=== PATIENT | female | born 1970 | race Caucasian/White ===

== ENCOUNTER 2017-09-21 13:21 | Emergency (ER) | payer BC, OTHER ==
[~2017-09-21] VITALS: Ht 165.1 cm; Wt 108.9 kg
[2017-09-21] MEDS ORDERED: ASPirin 81 mg TAB PO ONE (14:30)
[2017-09-21 14:46] LABS: Basophils # (auto) 0.1 uL; Basophils % (auto) 0.8 % (0.0-2.0); Eosinophils # (auto) 0.4 uL; Eosinophils % (auto) 3.8 % (0.0-7.0); Hematocrit 42.3 % (36.0-46.0); Hemoglobin 14.3 g/dL (12.2-16.2); Lymphocytes # (auto) 2.9 uL; Mean Corpuscular Hemoglobin 30.1 pg (28.0-32.0); Mean Corpuscular Hgb Conc. 33.8 g/dL (32.0-36.0); Mean Corpuscular Volume 89.3 fL (80.0-100.0); Monocytes # (auto) 0.7 uL; Monocytes % (auto) 6.6 % (0.0-12.0); Neutrophils # (auto) 6.9 uL; Neutrophils % (auto) 62.8 % (37.0-80.0); Nucleated Red Blood Cells % 0.1 %; Platelet Count (auto) 355 10^3/uL (140-450); Red Blood Cells 4.74 10^6/uL (4.0-5.20); Red Cell Distribution Width 14.1 % (11.8-14.3); White Blood Cell 11.1 10^3/uL (4.4-10.8)
[2017-09-21 15:00] LABS: Urine Bacteria NONE SEEN /hpf (None Seen); Urine Blood Negative /uL (Negative); Urine Mucus FEW (None Seen); Urine Specific Gravity 1.021 (1.001-1.035); Urine WBC 1 /hpf (0 - 5)
[2017-09-21 15:02] LABS: Alanine Aminotransferase 33 U/L (13-56); Albumin 3.5 g/dL (3.4-5.0); Anion Gap 8 (5-15); Aspartate Aminotransferase 14 U/L (15-37); BUN/Creatinine Ratio 17.3; Blood Urea Nitrogen 14 mg/dL (7-18); Calcium 8.3 mg/dL (8.5-10.1); Carbon Dioxide 23 mmol/L (21-32); Chloride 112 mmol/L (98-107); GFR African American 98 mL/min; GFR Non-African American 81 mL/min; Glucose 140 mg/dL (74-106); Potassium 3.7 mmol/L (3.5-5.1); Sodium 143 mmol/L (136-145)
[2017-09-21 15:07] LABS: Alkaline Phosphatase 65 U/L (45-117); Bilirubin, Total 0.2 mg/dL (0.2-1.0); Total Protein 7.3 g/dL (6.4-8.2)
[2017-09-21 16:51] VITALS: BP 133/87
== END 2017-09-21 16:55 | disposition home or self-care (01) ==
LOC: ER 13:23
DX: R07.89 Other chest pain (principal); J40 Bronchitis, not specified as acute or chronic; F17.210 Nicotine dependence, cigarettes, uncomplicated; Z90.49 Acquired absence of other specified parts of digestive tract; Z90.710 Acquired absence of both cervix and uterus; Z80.0 Family history of malignant neoplasm of digestive organs; Z88.1 Allergy status to other antibiotic agents
CPT/HCPCS: 36415; 71045; 74176; 80053; 81001; 84484; 85025; 93005

== ENCOUNTER 2019-06-02 15:48 | Emergency (ER) | payer BC, MEDICAID, OTHER ==
[~2019-06-02] VITALS: Ht 165.1 cm; Wt 70.3 kg
[2019-06-02 16:31] VITALS: BP 157/84
[2019-06-02] MEDS ORDERED: KETOROLAC TROMETH 60MG/2ML VIAL IM ONE (17:00)
[2019-06-02] MEDS ORDERED: diazePAM 5 MG TAB PO ONE (17:15)
== END 2019-06-02 17:41 | disposition home or self-care (01) ==
LOC: ER 15:48
DX: M43.6 Torticollis (principal); M54.2 Cervicalgia; M62.838 Other muscle spasm; F17.210 Nicotine dependence, cigarettes, uncomplicated; I25.2 Old myocardial infarction; Z90.49 Acquired absence of other specified parts of digestive tract; Z90.710 Acquired absence of both cervix and uterus; Z88.0 Allergy status to penicillin; Z88.1 Allergy status to other antibiotic agents
CPT/HCPCS: 72050; 96372; 99283; J1885

== ENCOUNTER 2019-09-24 07:24 | Emergency (ER) | payer MEDICAID ==
[~2019-09-24] VITALS: Ht 165.1 cm; Wt 74.8 kg
[2019-09-24] MEDS ORDERED: SODIUM CHLORIDE 0.9% 1,000 ML IV ONE (08:12)
[2019-09-24] MEDS ORDERED: ASPirin 81 mg TAB PO ONE (08:15)
[2019-09-24 08:50] LABS: Basophils # (auto) 0.1 10 ^3/uL (0-0.2); Basophils % (auto) 0.6 % (0.0-2.0); Eosinophils # (auto) 0.3 10 ^3/uL (0-0.8); Eosinophils % (auto) 3.6 % (0.0-7.0); Hematocrit 40.8 % (36.0-46.0); Hemoglobin 13.6 g/dL (12.2-16.2); Lymphocytes # (auto) 1.9 10 ^3/uL (0.4-5.4); Lymphocytes % (auto) 21.4 % (10.0-50.0); Mean Corpuscular Hemoglobin 30.9 pg (28.0-32.0); Mean Corpuscular Hgb Conc. 33.2 g/dL (32.0-36.0); Monocytes # (auto) 0.5 10 ^3/uL (0-1.3); Neutrophils # (auto) 6.3 10 ^3/uL (1.6-8.6); Neutrophils % (auto) 69.4 % (37.0-80.0); Platelet Count (auto) 303 10^3/uL (140-450); Red Blood Cells 4.39 10^6/uL (4.0-5.20); Red Cell Distribution Width 13.6 % (11.8-14.3); White Blood Cell 9.1 10^3/uL (4.4-10.8)
[2019-09-24 09:05] LABS: INR 1.13 (0.9-1.15); Partial Thromboplastin Time 25.7 sec (23.64-32.05)
[2019-09-24 09:14] LABS: Albumin 3.4 g/dL (3.4-5.0); Potassium 3.8 mmol/L (3.5-5.1)
[2019-09-24 09:20] LABS: Bilirubin, Total 0.4 mg/dL (0.2-1.0); Total Protein 6.8 g/dL (6.4-8.2)
[2019-09-24 10:00] VITALS: BP 140/74
[2019-09-24] MEDS ORDERED: LEVOTHYROXINE SODIUM 100 MCG/5 ML INJ IV ONE (10:45)
[2019-09-24 12:43] LABS: Cholesterol 179 mg/dL (< 200); Triglycerides 131 mg/dL (< 150)
[2019-09-24 12:46] LABS: HDL Cholesterol 40 mg/dL (40-59); LDL Cholesterol 117 mg/dL (< 100)
== END 2019-09-24 11:44 | disposition left against medical advice (07) ==
LOC: ER 07:24
DX: R07.89 Other chest pain (principal); I10 Essential (primary) hypertension; E03.9 Hypothyroidism, unspecified; I25.2 Old myocardial infarction; E44.1 Mild protein-calorie malnutrition; R11.2 Nausea with vomiting, unspecified; Z68.27 Body mass index [BMI] 27.0-27.9, adult; Z87.891 Personal history of nicotine dependence; Z90.49 Acquired absence of other specified parts of digestive tract; Z90.710 Acquired absence of both cervix and uterus; Z88.0 Allergy status to penicillin; Z88.1 Allergy status to other antibiotic agents
CPT/HCPCS: 36415; 71046; 80053; 80061; 83735; 83880; 84443; 84481; 84484; 85025; 85379; 85610; 85730; 93005; 96361; 96374; 99285; J3490; J7030

== ENCOUNTER 2020-04-29 11:44 | Emergency (ER) | payer MEDICAID ==
[~2020-04-29] VITALS: Ht 165.1 cm; Wt 90.7 kg
[2020-04-29 11:45] VITALS: BP 166/102
[2020-07-04] MEDS ORDERED: CITA-244 PO (14:06)
[2020-07-04] MEDS ORDERED: ATOR40TA52 PO (14:06)
[2020-07-04] MEDS ORDERED: METO25TA93 PO (14:06)
[2020-07-04] MEDS ORDERED: LEV100T PO (14:06)
[2020-07-06] MEDS ORDERED: CARV6.2551 PO (11:17)
[2020-07-06] MEDS ORDERED: ATOR40TA52 PO (11:17)
[2020-07-06] MEDS ORDERED: LISI20TA28 PO (11:17)
[2020-07-06] MEDS ORDERED: FURO1TAB31 PO (11:17)
[2020-07-06] MEDS ORDERED: LEV100T PO (11:17)
== END 2020-04-29 13:30 | disposition left against medical advice (07) ==
LOC: ER 11:44
DX: Z76.0 Encounter for issue of repeat prescription (principal); Z53.21 Procedure and treatment not carried out due to patient leaving prior to being seen by health care provider

== ENCOUNTER 2021-05-03 23:08 | Emergency (ER) | payer MEDICAID ==
[~2021-05-03] VITALS: Ht 165.1 cm; Wt 111.1 kg
[2021-05-03 23:08] VITALS: BP 135/95
[~2021-05-03 23:08] MED LIST: ATOR40TA52 PO; CARV6.2551 PO; CITA-244 PO; FURO1TAB31 PO; LEV100T PO; LISI20TA28 PO
== END 2021-05-04 05:35 | disposition left against medical advice (07) ==
LOC: ER 23:08
DX: I42.9 Cardiomyopathy, unspecified (principal); R06.02 Shortness of breath; F15.10 Other stimulant abuse, uncomplicated; F17.210 Nicotine dependence, cigarettes, uncomplicated; Z90.49 Acquired absence of other specified parts of digestive tract; Z90.710 Acquired absence of both cervix and uterus
CPT/HCPCS: 71045; 93005

== ENCOUNTER 2022-07-03 00:26 | Emergency (ER) | payer MEDICAID ==
[~2022-07-03] VITALS: Ht 165.1 cm; Wt 121.4 kg
[2022-07-03] MEDS ORDERED: IPRATROPIUM BROM 0.5 MG/2.5ML INH SOL NEB ONE (01:00)
[2022-07-03] MEDS ORDERED: ALBUTEROL SULF 2.5 MG/0.5ML(0.5%) NEB SOLN NEB ONE (01:00)
[2022-07-03 02:45] VITALS: BP 155/96
[2022-07-03 03:45] LABS: Albumin 3.6 g/dL (3.4-5.0); BUN/Creatinine Ratio 15.6 (10.0-20.0); Potassium 4.1 mmol/L (3.5-5.1)
[2022-07-03 03:48] LABS: Bilirubin, Total 0.2 mg/dL (0.2-1.0); Total Protein 7.2 g/dL (6.4-8.2)
[2022-07-03 03:55] LABS: Basophils # (auto) 0.1 10 ^3/uL (0-0.2); Basophils % (auto) 1.1 % (0.0-2.0); Eosinophils # (auto) 0.4 10 ^3/uL (0-0.8); Eosinophils % (auto) 3.5 % (0.0-7.0); Hematocrit 37.7 % (36.0-46.0); Hemoglobin 12.7 g/dL (12.2-16.2); Lymphocytes # (auto) 2.3 10 ^3/uL (0.4-5.4); Lymphocytes % (auto) 20.8 % (10.0-50.0); Mean Corpuscular Hemoglobin 30.1 pg (28.0-32.0); Mean Corpuscular Hgb Conc. 33.8 g/dL (32.0-36.0); Mean Corpuscular Volume 89.2 fL (80.0-100.0); Monocytes # (auto) 0.8 10 ^3/uL (0-1.3); Neutrophils # (auto) 7.5 10 ^3/uL (1.6-8.6); Neutrophils % (auto) 67.6 % (37.0-80.0); Nucleated Red Blood Cells % 0.1 %; Red Blood Cells 4.23 10^6/uL (4.0-5.20); Red Cell Distribution Width 14.5 % (11.8-14.3); White Blood Cell 11.1 10^3/uL (4.4-10.8)
[2022-07-03] MEDS ORDERED: AZITHROMYCIN 250 MG TAB PO ONE (04:00)
[2022-07-03] MEDS ORDERED: cefTRIAXone 1GM/50ML D5W 50 ML IV ONE (04:00)
[2022-07-03] MEDS ORDERED: levoFLOXacin 500MG 100 ML IV ONE (05:15)
[2022-07-03] MEDS ORDERED: CEPHALEXIN 250 MG CAP PO ONE (05:15)
[2022-07-03] MEDS ORDERED: ALBUTEROL SULF 2.5 MG/0.5ML(0.5%) NEB SOLN NEB PRN (06:30)
[2022-07-03] MEDS ORDERED: TEMAZEPAM 15 MG CAP PO PRN (06:30)
[2022-07-03] MEDS ORDERED: ONDANSETRON HCL 4 MG/2 ML VIAL IV PRN (06:30)
[2022-07-03] MEDS ORDERED: NITROGLYCERIN 0.4 MG SL TAB SL PRN (06:30)
[2022-07-03] MEDS ORDERED: ACETAMINOPHEN 325 MG TAB PO PRN (06:30)
[2022-07-03] MEDS ORDERED: MORPHINE SULFATE INJ 2 MG/ml SYRG IV PRN (06:30)
[2022-07-03] MEDS ORDERED: LEVOTHYROXINE SODIUM 100 MCG TAB PO SCH (07:00)
[2022-07-03] MEDS ORDERED: CLOPIDOGREL BISULFATE 75 MG TAB PO SCH (10:00)
[2022-07-03] MEDS ORDERED: FUROSEMIDE 40 MG TAB PO SCH (10:00)
[2022-07-03] MEDS ORDERED: ENOXAPARIN SOD 40 MG/0.4 ML SYRINGE SC SCH (10:00)
[2022-07-03] MEDS ORDERED: levoFLOXacin 500MG 100 ML IV SCH (10:00)
[2022-07-03] MEDS ORDERED: CARVEDILOL 3.125 MG TAB PO SCH (10:00)
[2022-07-03] MEDS ORDERED: LISINOPRIL 20 MG TAB PO SCH (10:00)
[2022-07-03] MEDS ORDERED: PANTOPRAZOLE 40 MG TAB PO SCH (10:00)
[2022-07-03] MEDS ORDERED: ATORVASTATIN 20 MG TAB PO SCH (22:00)
== END 2022-07-03 07:44 | disposition left against medical advice (07) ==
LOC: ER 00:26 → TELE 06:27 → UNDOADMIN 06:27 → UNDODISIN 06:30
DX: I21.4 Non-ST elevation (NSTEMI) myocardial infarction (principal); J18.1 Lobar pneumonia, unspecified organism; R07.89 Other chest pain; I11.0 Hypertensive heart disease with heart failure; I50.9 Heart failure, unspecified; I25.2 Old myocardial infarction; E03.9 Hypothyroidism, unspecified; Z87.891 Personal history of nicotine dependence; Z90.49 Acquired absence of other specified parts of digestive tract; Z90.89 Acquired absence of other organs; Z90.710 Acquired absence of both cervix and uterus
CPT/HCPCS: 36415; 71045; 80053; 83880; 84484; 85025; 93005; 94640; 96365; 99285; J1956; J7644; G0378

== ENCOUNTER 2023-10-03 07:05 | Emergency (ER) | payer MEDICAID ==
[~2023-10-03] VITALS: Ht 165.1 cm; Wt 113.6 kg
[~2023-10-03 07:05] MED LIST changes: -LISI20TA28 PO; +LISI20TA56 PO
[2023-10-03 07:55] LABS: Basophils # (auto) 0.1 10 ^3/uL (0-0.2); Basophils % (auto) 1.1 % (0.0-2.0); Eosinophils # (auto) 0.4 10 ^3/uL (0-0.8); Eosinophils % (auto) 4.3 % (0.0-7.0); Hemoglobin 13.1 g/dL (12.2-16.2); Lymphocytes # (auto) 1.5 10 ^3/uL (0.4-5.4); Lymphocytes % (auto) 17.9 % (10.0-50.0); Mean Corpuscular Hemoglobin 30.8 pg (28.0-32.0); Mean Corpuscular Hgb Conc. 32.8 g/dL (32.0-36.0); Mean Corpuscular Volume 94.1 fL (80.0-100.0); Monocytes # (auto) 0.8 10 ^3/uL (0-1.3); Monocytes % (auto) 8.9 % (0.0-12.0); Neutrophils # (auto) 5.8 10 ^3/uL (1.6-8.6); Neutrophils % (auto) 67.8 % (37.0-80.0); Red Blood Cells 4.25 10^6/uL (4.0-5.20); Red Cell Distribution Width 15.7 % (11.8-14.3); White Blood Cell 8.5 10^3/uL (4.4-10.8)
[2023-10-03] MEDS: FUROSEMIDE 100 MG/10ML VIAL IV ONE (08:00)
[2023-10-03 08:07] VITALS: BP 161/80; PULSE 95; RESP 15; TEMP 98; O2SAT 96
[2023-10-03 08:10] LABS: Alanine Aminotransferase 40 U/L (7-40); Albumin 4.1 g/dL (3.2-4.8); Alkaline Phosphatase 80 U/L (46-116); Anion Gap 7 (5-15); Aspartate Aminotransferase 30 U/L (13-40); BUN/Creatinine Ratio 19.1 (10.0-20.0); Blood Urea Nitrogen 21 mg/dL (9-23); Carbon Dioxide 24 mmol/L (20-30); Chloride 109 mmol/L (98-107); Glucose 162 mg/dL (74-106); INR 1.1 (0.9-1.15); Magnesium 1.9 mg/dL (1.6-2.6); Partial Thromboplastin Time 21.4 SEC (24.5-34.5); Potassium 4.1 mmol/L (3.5-5.1); Prothrombin Time 11.6 sec (9.3-11.8); Sodium 140 mmol/L (136-145)
[2023-10-03 08:11] LABS: Bilirubin, Total 0.3 mg/dL (0.2-1.0); Total Protein 6.5 g/dL (5.7-8.2)
== END 2023-10-03 09:48 | disposition left against medical advice (07) ==
LOC: ER 07:05
DX: I11.0 Hypertensive heart disease with heart failure (principal); I50.9 Heart failure, unspecified; I25.2 Old myocardial infarction; E07.9 Disorder of thyroid, unspecified; F15.10 Other stimulant abuse, uncomplicated; Z87.891 Personal history of nicotine dependence; Z85.9 Personal history of malignant neoplasm, unspecified; Z90.49 Acquired absence of other specified parts of digestive tract; Z90.710 Acquired absence of both cervix and uterus; Z90.89 Acquired absence of other organs; Z88.1 Allergy status to other antibiotic agents; Z88.8 Allergy status to other drugs, medicaments and biological substances; Z88.0 Allergy status to penicillin; Z79.899 Other long term (current) drug therapy
CPT/HCPCS: 36415; 71045; 80053; 83735; 83880; 84484; 85025; 85610; 85730; 93005; 96374; 99285; J1940

== ENCOUNTER 2023-10-09 07:36 | Inpatient (IN) | payer MEDICAID ==
[~2023-10-09] VITALS: Ht 165.1 cm; Wt 126.9 kg
[2023-10-09 09:00] VITALS: PULSE 88; RESP 18; O2SAT 95
[2023-10-09 09:15] LABS: Basophils # (auto) 0.1 10 ^3/uL (0-0.2); Eosinophils # (auto) 0.4 10 ^3/uL (0-0.8); Eosinophils % (auto) 4.6 % (0.0-7.0); Hematocrit 44.7 % (36.0-46.0); Lymphocytes # (auto) 1.7 10 ^3/uL (0.4-5.4); Lymphocytes % (auto) 19.5 % (10.0-50.0); Mean Corpuscular Hemoglobin 30.9 pg (28.0-32.0); Mean Corpuscular Hgb Conc. 33.5 g/dL (32.0-36.0); Mean Corpuscular Volume 92.3 fL (80.0-100.0); Monocytes # (auto) 0.6 10 ^3/uL (0-1.3); Monocytes % (auto) 7.2 % (0.0-12.0); Neutrophils # (auto) 5.8 10 ^3/uL (1.6-8.6); Neutrophils % (auto) 67.7 % (37.0-80.0); Nucleated Red Blood Cells % 0.1 %; Red Blood Cells 4.85 10^6/uL (4.0-5.20); White Blood Cell 8.6 10^3/uL (4.4-10.8)
[2023-10-09 09:41] LABS: Chloride 107 mmol/L (98-107); Potassium 4.5 mmol/L (3.5-5.1); Sodium 136 mmol/L (136-145)
[2023-10-09 09:42] LABS: Anion Gap 7 (5-15); Calcium 9.3 mg/dL (8.5-10.1); Carbon Dioxide 22 mmol/L (20-30)
[2023-10-09 09:47] LABS: BUN/Creatinine Ratio 7.1 (10.0-20.0); Blood Urea Nitrogen 8 mg/dL (9-23); Glucose 128 mg/dL (74-106)
[2023-10-09] MEDS ORDERED: ONDANSETRON HCL 4 MG/2 ML VIAL IV PRN (12:00)
[2023-10-09] MEDS ORDERED: NITROGLYCERIN 0.4 MG SL TAB SL PRN (12:00)
[2023-10-09] MEDS ORDERED: MORPHINE SULFATE INJ 2 MG/ml SYRG IV PRN (12:00)
[2023-10-09 12:26] VITALS: RESP 16; O2SAT 97
[2023-10-09] MEDS: FUROSEMIDE 20 MG/2 ML VIAL IV ONE (12:31)
[2023-10-09 13:49] LABS: Urine Bacteria FEW /hpf (None Seen); Urine Blood Negative /uL (Negative); Urine Color Yellow (Yellow); Urine Protein, UAD Negative (Negative); Urine Specific Gravity 1.017 (1.001-1.035); Urine Urobilinogen Normal (Negative); Urine WBC 36 /hpf (0 - 5)
[2023-10-09 13:50] LABS: Urine Clarity Cloudy (Clear)
[2023-10-09 13:57] LABS: Amphetamine Screen, Urine Pos (NEGATIVE); Barbiturate Scree,Urine Neg (NEGATIVE); Benzodiazephine Screen, Urine Neg (NEGATIVE); Cocaine Screen, Urine Neg (NEGATIVE); Opiate Scree,Urine Neg (NEGATIVE); Phencyclidine Screen, Urine Neg (NEGATIVE)
[2023-10-09 13:58] LABS: Cannabinoid Screen, Urine Neg (NEGATIVE)
[2023-10-09] MEDS: ENOXAPARIN SOD 100 MG/1 ML SYRINGE SC SCH (15:02)
[2023-10-09] MEDS: ASPirin-EC 81 mg tab PO ONE (15:02)
[2023-10-09 15:08] LABS: Triglycerides 302 mg/dL (< 150)
[2023-10-09 15:09] LABS: LDL Cholesterol 192 mg/dL (< 100)
[2023-10-09 15:10] LABS: Cholesterol 266 mg/dL (< 200); HDL Cholesterol 35 mg/dL (40-59)
[2023-10-09 16:02] LABS: INR 1.13 (0.9-1.15); Partial Thromboplastin Time 25.7 SEC (24.5-34.5); Prothrombin Time 11.9 sec (9.3-11.8)
[2023-10-09 17:48] VITALS: BP 146/84; PULSE 91; RESP 20; TEMP 98.4; O2SAT 92
[2023-10-09 17:55] VITALS: BP 146/84; PULSE 91; RESP 20; TEMP 98.4; O2SAT 92
[2023-10-09] MEDS: SPIRONOLACTONE 25 MG TAB PO SCH (18:40)
[2023-10-09] MEDS: FUROSEMIDE 40 MG/4 ML VIAL IV SCH (18:40)
[2023-10-09 20:00] VITALS: PULSE 93; PULSE 97; RESP 17; O2SAT 93
[2023-10-09] MEDS: HYDROcodone-ACET 5/325MG TAB PO PRN (20:04)
[2023-10-09 21:00] VITALS: BP 157/93; PULSE 93; RESP 17; TEMP 98.3; O2SAT 93
[2023-10-09] MEDS: FAMOTIDINE 20 MG TAB PO SCH (21:27)
[2023-10-09] MEDS: ATORVASTATIN 20 MG TAB PO SCH (21:27)
[2023-10-10] VITALS (8 sets, daily range): BP systolic 112–164; BP diastolic 67–76; PULSE 70–96; RESP 16–20; TEMP 97.3–98; O2SAT 90–99
[2023-10-10] MEDS: ACETAMINOPHEN 325 MG TAB PO PRN (00:13)
[2023-10-10 05:49] LABS: Basophils # (auto) 0.1 10 ^3/uL (0-0.2); Basophils % (auto) 0.9 % (0.0-2.0); Eosinophils # (auto) 0.4 10 ^3/uL (0-0.8); Eosinophils % (auto) 4.5 % (0.0-7.0); Hematocrit 45.7 % (36.0-46.0); Hemoglobin 15.1 g/dL (12.2-16.2); Lymphocytes # (auto) 1.9 10 ^3/uL (0.4-5.4); Lymphocytes % (auto) 24.5 % (10.0-50.0); Mean Corpuscular Hgb Conc. 33.1 g/dL (32.0-36.0); Mean Corpuscular Volume 93.6 fL (80.0-100.0); Monocytes # (auto) 0.6 10 ^3/uL (0-1.3); Monocytes % (auto) 7.1 % (0.0-12.0); Nucleated Red Blood Cells % 0.1 %; Red Blood Cells 4.88 10^6/uL (4.0-5.20); Red Cell Distribution Width 15.3 % (11.8-14.3)
[2023-10-10 05:53] LABS: Chloride 104 mmol/L (98-107); Potassium 4.5 mmol/L (3.5-5.1); Sodium 138 mmol/L (136-145)
[2023-10-10 05:54] LABS: Anion Gap 6 (5-15); Carbon Dioxide 28 mmol/L (20-30)
[2023-10-10 05:55] LABS: Calcium 9.1 mg/dL (8.5-10.1)
[2023-10-10 06:00] LABS: BUN/Creatinine Ratio 17.6 (10.0-20.0); Blood Urea Nitrogen 21 mg/dL (9-23); Glucose 144 mg/dL (74-106)
[2023-10-10] MEDS: ASPirin-EC 81 mg tab PO SCH (11:36)
[2023-10-10] MEDS ORDERED: MAALOX PLUS or MAALOX 30 ML PO PRN (16:00)
[2023-10-11] VITALS (7 sets, daily range): BP systolic 13–161; BP diastolic 41–77; PULSE 70–98; RESP 14–22; TEMP 97.5–98.3; O2SAT 93–98
[2023-10-11 08:36] LABS: Basophils # (auto) 0.1 10 ^3/uL (0-0.2); Basophils % (auto) 1.1 % (0.0-2.0); Eosinophils # (auto) 0.4 10 ^3/uL (0-0.8); Eosinophils % (auto) 4.5 % (0.0-7.0); Hematocrit 46.7 % (36.0-46.0); Hemoglobin 15.5 g/dL (12.2-16.2); Lymphocytes # (auto) 1.7 10 ^3/uL (0.4-5.4); Lymphocytes % (auto) 20.3 % (10.0-50.0); Mean Corpuscular Hgb Conc. 33.3 g/dL (32.0-36.0); Monocytes # (auto) 0.6 10 ^3/uL (0-1.3); Monocytes % (auto) 7.1 % (0.0-12.0); Neutrophils # (auto) 5.7 10 ^3/uL (1.6-8.6); Nucleated Red Blood Cells % 0.2 %; Red Blood Cells 5.02 10^6/uL (4.0-5.20); Red Cell Distribution Width 15.4 % (11.8-14.3); White Blood Cell 8.5 10^3/uL (4.4-10.8)
[2023-10-11 08:48] LABS: Chloride 101 mmol/L (98-107); Potassium 4.3 mmol/L (3.5-5.1); Sodium 138 mmol/L (136-145)
[2023-10-11 08:49] LABS: Anion Gap 2 (5-15); Calcium 9.8 mg/dL (8.5-10.1); Carbon Dioxide 35 mmol/L (20-30)
[2023-10-11 08:54] LABS: BUN/Creatinine Ratio 12.7 (10.0-20.0); Blood Urea Nitrogen 17 mg/dL (9-23); Glucose 135 mg/dL (74-106)
[2023-10-11] MEDS: METOPROLOL TARTRATE 25 MG TAB PO SCH (10:41)
[2023-10-11] MEDS: SENNA 8.6 MG TAB PO SCH (21:05)
[2023-10-11] MEDS: MELATONIN 5 MG TAB PO ONE (21:06)
[2023-10-12] VITALS (7 sets, daily range): BP systolic 126–147; BP diastolic 68–80; PULSE 61–98; RESP 13–20; TEMP 36.6; O2SAT 90–95
[2023-10-12 06:33] LABS: Chloride 102 mmol/L (98-107); Potassium 4.6 mmol/L (3.5-5.1); Sodium 136 mmol/L (136-145)
[2023-10-12 06:34] LABS: Anion Gap 3 (5-15); Carbon Dioxide 31 mmol/L (20-30)
[2023-10-12 06:35] LABS: Calcium 9.7 mg/dL (8.7-10.4)
[2023-10-12] MEDS: LEVOTHYROXINE SODIUM 100 MCG TAB PO SCH (06:38)
[2023-10-12 06:39] LABS: Glucose 128 mg/dL (74-106)
[2023-10-12 06:40] LABS: BUN/Creatinine Ratio 20.7 (10.0-20.0); Blood Urea Nitrogen 25 mg/dL (9-23)
[2023-10-12 07:01] LABS: Basophils # (auto) 0.1 10 ^3/uL (0-0.2); Basophils % (auto) 0.8 % (0.0-2.0); Eosinophils # (auto) 0.5 10 ^3/uL (0-0.8); Eosinophils % (auto) 4.7 % (0.0-7.0); Hematocrit 46.9 % (36.0-46.0); Hemoglobin 15.6 g/dL (12.2-16.2); Lymphocytes % (auto) 19.5 % (10.0-50.0); Mean Corpuscular Hemoglobin 31.4 pg (28.0-32.0); Mean Corpuscular Hgb Conc. 33.3 g/dL (32.0-36.0); Mean Corpuscular Volume 94.2 fL (80.0-100.0); Monocytes # (auto) 0.8 10 ^3/uL (0-1.3); Monocytes % (auto) 7.9 % (0.0-12.0); Neutrophils # (auto) 6.9 10 ^3/uL (1.6-8.6); Neutrophils % (auto) 67.1 % (37.0-80.0); Nucleated Red Blood Cells % 0.3 %; Red Blood Cells 4.97 10^6/uL (4.0-5.20); Red Cell Distribution Width 15.3 % (11.8-14.3); White Blood Cell 10.3 10^3/uL (4.4-10.8)
[2023-10-12] MEDS ORDERED: LEV100T PO (16:22)
[2023-10-12] MEDS ORDERED: ASPI-543 PO (16:22)
[2023-10-12] MEDS ORDERED: LISI20TA56 PO (16:22)
[2023-10-12] MEDS ORDERED: ATOR40TA52 PO (16:22)
[2023-10-12] MEDS ORDERED: FURO1TAB31 PO (16:22)
[2023-10-12] MEDS ORDERED: MET25T PO (16:22)
[2023-10-12] MEDS ORDERED: LEVO500T91 PO (16:26)
[2023-10-12] MEDS ORDERED: SACUBITRIL-VALSARTAN 24mg/26mg TAB PO SCH (22:00)
== END 2023-10-12 19:44 | disposition home or self-care (01) | DRG 194 ==
LOC: ER 07:36 → TELE 11:49 → TELE-EAST 17:40
PROVIDERS: ADMIT Hospitalist; ATTEND Hospitalist
DX: I11.0 Hypertensive heart disease with heart failure (principal); I21.A1 Myocardial infarction type 2; I42.8 Other cardiomyopathies; I50.23 Acute on chronic systolic (congestive) heart failure; Z99.81 Dependence on supplemental oxygen; E78.5 Hyperlipidemia, unspecified; F15.10 Other stimulant abuse, uncomplicated; F17.210 Nicotine dependence, cigarettes, uncomplicated; E66.01 Morbid (severe) obesity due to excess calories; I25.10 Atherosclerotic heart disease of native coronary artery without angina pectoris; N39.0 Urinary tract infection, site not specified; J44.9 Chronic obstructive pulmonary disease, unspecified; E03.9 Hypothyroidism, unspecified; Z88.1 Allergy status to other antibiotic agents; Z88.0 Allergy status to penicillin; Z88.8 Allergy status to other drugs, medicaments and biological substances; Z79.899 Other long term (current) drug therapy; Z90.711 Acquired absence of uterus with remaining cervical stump; Z68.42 Body mass index [BMI] 45.0-49.9, adult; Z82.49 Family history of ischemic heart disease and other diseases of the circulatory system; Z80.0 Family history of malignant neoplasm of digestive organs; Z80.8 Family history of malignant neoplasm of other organs or systems; I25.2 Old myocardial infarction; Z91.199 Patient's noncompliance with other medical treatment and regimen due to unspecified reason; Z85.41 Personal history of malignant neoplasm of cervix uteri
CPT/HCPCS: 36415; 71045; 74176; 80048; 80061; 80307; 81001; 83880; 84484; 85025; 85379; 85610; 85730; 93005; 93306; 99291; G0378

== ENCOUNTER 2023-10-25 14:46 | Emergency (ER) | payer MEDICAID ==
[~2023-10-25] VITALS: Ht 165.1 cm; Wt 126.9 kg
[~2023-10-25 14:46] MED LIST changes: +ASPI-543 PO; -CARV6.2551 PO; +LEVO500T91 PO; +MET25T PO
[2023-10-25 15:28] VITALS: BP 175/93; PULSE 99; RESP 26; O2SAT 92
[2023-10-25] MEDS ORDERED: FUROSEMIDE 40 MG/4 ML VIAL IV ONE (15:30)
[2023-10-25] MEDS ORDERED: ALBUTEROL SULF 2.5 MG/0.5ML(0.5%) NEB SOLN NEB ONE (15:30)
[2023-10-25] MEDS ORDERED: IPRATROPIUM BROM 0.5 MG/2.5ML INH SOL NEB ONE (15:30)
[2023-10-25] MEDS ORDERED: methylPREDNISolone SOD SUCC 125 MG/2 ML VL IV ONE (15:30)
== END 2023-10-25 15:28 | disposition left against medical advice (07) ==
LOC: ER 14:46
DX: I11.0 Hypertensive heart disease with heart failure (principal); I50.9 Heart failure, unspecified; J96.20 Acute and chronic respiratory failure, unspecified whether with hypoxia or hypercapnia; I25.10 Atherosclerotic heart disease of native coronary artery without angina pectoris; I25.2 Old myocardial infarction; E11.9 Type 2 diabetes mellitus without complications; J44.9 Chronic obstructive pulmonary disease, unspecified; F17.210 Nicotine dependence, cigarettes, uncomplicated; Z85.9 Personal history of malignant neoplasm, unspecified; Z98.890 Other specified postprocedural states; Z90.710 Acquired absence of both cervix and uterus
CPT/HCPCS: 93005